=== PATIENT | female | born 1990 | race Two or more races ===

== ENCOUNTER 2018-07-25 01:41 | Emergency (ER) | payer MEDICAID, OTHER ==
[~2018-07-25] VITALS: Ht 154.9 cm; Wt 70.3 kg
[~2018-07-25 01:41] MED LIST: KEP500T PO
[2018-07-25 01:46] VITALS: BP 123/87
[2018-07-25 03:04] LABS: URINE AMPHETAMINE SCREEN NEGATIVE (Neg); URINE BARBITUATE SCREEN NEGATIVE (Neg); URINE BENZODIAZEPINES SCREEN NEGATIVE (Neg); URINE CANNABINOID SCREEN NEGATIVE (Neg); URINE COCAINE SCREEN NEGATIVE (Neg); URINE METHADONE SCREEN NEGATIVE (Neg); URINE OPIATE SCREEN NEGATIVE (Neg); URINE PHENCYCLIDINE SCREEN NEGATIVE (Neg)
[2018-07-25 03:07] LABS: CLARITY,URINE CLEAR (Clear); COLOR,URINE YELLOW (Yellow); GLUCOSE, URINE NEGATIVE (Neg); KETONES,URINE NEGATIVE (Neg); LEUKOCYTE ESTERASE ,URINE NEGATIVE (Neg); NITRITES, URINE NEGATIVE (Neg); OCCULT BLOOD,URINE NEGATIVE (Neg); PROTEIN,URINE NEGATIVE (Neg); UROBILINOGEN,URINE 0.2 E.U/dL (0.2-1.0)
[2018-07-25 03:08] LABS: UA COLLECTION TYPE CLN CATCH MIDSTREAM
[2018-07-25 03:14] LABS: URINE HCG NEGATIVE (NEG)
[2018-07-25] MEDS ORDERED: morphine 4 MG/ML inj SYRINge IM ONE (03:45)
[2018-07-25] MEDS ORDERED: CefTRIAXone 250MG inj IM ONE (05:15)
[2018-07-25] MEDS ORDERED: DOXYCYCLINE 100MG CAPSULE PO ONE (05:20)
[2018-07-25] MEDS ORDERED: CefTRIAXone 250MG IM Kit w/LIDOcaine IM ONE (05:25)
[2018-07-25] MEDS ORDERED: HYDROmorphone 1 mg/ml syringe IM ONE (05:25)
[2018-07-25] MEDS ORDERED: DOXY100C43 PO (06:00)
[2018-07-25] MEDS ORDERED: HYDR-3965 PO (06:00)
== END 2018-07-25 06:33 | disposition home or self-care (01) ==
LOC: ER 01:42
DX: N73.9 Female pelvic inflammatory disease, unspecified (principal); R30.0 Dysuria; J45.909 Unspecified asthma, uncomplicated; F17.200 Nicotine dependence, unspecified, uncomplicated; Z90.49 Acquired absence of other specified parts of digestive tract; Z88.8 Allergy status to other drugs, medicaments and biological substances; Z79.899 Other long term (current) drug therapy
CPT/HCPCS: 36415; 76830; 76856; 80305; 81003; 81025; 87210; 87491; 87591; 96372; 99284; J0696; J1170; J2270

== ENCOUNTER 2018-07-26 23:37 | Emergency (ER) | payer MEDICAID ==
[~2018-07-26] VITALS: Ht 157.5 cm; Wt 75.0 kg
[~2018-07-26 23:37] MED LIST changes: +DOXY100C43 PO; +HYDR-3965 PO
[2018-07-26 23:45] VITALS: BP 136/81
[2018-07-27] MEDS ORDERED: ondansetron 4mg rapidly disintigrating tab PO ONE (00:10)
[2018-07-27] MEDS ORDERED: morphine 4 MG/ML inj SYRINge IM ONE (00:10)
[2018-07-27] MEDS ORDERED: ONDA4TAB6 PO (00:18)
== END 2018-07-27 00:28 | disposition home or self-care (01) ==
LOC: ER 23:38
DX: N73.9 Female pelvic inflammatory disease, unspecified (principal); J45.909 Unspecified asthma, uncomplicated; Z88.8 Allergy status to other drugs, medicaments and biological substances; Z79.899 Other long term (current) drug therapy; Z90.49 Acquired absence of other specified parts of digestive tract
CPT/HCPCS: 96372; 99283; J2270

== ENCOUNTER 2018-08-15 00:57 | Emergency (ER) | payer MEDICARE, MEDICAID ==
[~2018-08-15] VITALS: Ht 154.9 cm; Wt 95.5 kg
[~2018-08-15 00:57] MED LIST changes: -DOXY100C43 PO; +ONDA4TAB6 PO
[2018-08-15] MEDS ORDERED: ondansetron/PF 4mg/2ml inj IV ONE ×2 (01:15→01:45)
[2018-08-15] MEDS ORDERED: normal saline 1000ml 1,000 ML IV ONE (01:15)
[2018-08-15] MEDS ORDERED: LORazepam 2 mg/ml vial IV ONE (01:20)
[2018-08-15] MEDS ORDERED: pantoprazole 40 MG vial IV ONE (01:20)
[2018-08-15 01:38] LABS: BASOPHILS # (AUTO) 0.1 X10'3 (0-0.2); BASOPHILS % (AUTO) 0.6 % (0-1); EOSINOPHILS # (AUTO) 0.2 X10'3 (0-0.9); EOSINOPHILS % (AUTO) 1.8 % (0-6); HEMOGLOBIN 13.6 g/dl (12.0-16.0); LYMPHOCYTES # (AUTO) 3.1 X10'3 (1.1-4.8); LYMPHOCYTES % (AUTO) 27.5 % (21-51); MEAN CORPUSCULAR HEMOGLOBIN 31.1 PG (27.0-31.0); MEAN CORPUSCULAR HGB CONC 33.9 g/dL (33.0-36.5); MEAN CORPUSCULAR VOLUME 91.7 FL (78-98); MEAN PLATELET VOLUME 8.6 FL (7.4-10.4); MONOCYTES # (AUTO) 0.9 X10'3 (0-0.9); NEUTROPHILS % (AUTO) 62.1 % (42-75); PLATELET COUNT 257 X10'3 (140-440); RED BLOOD COUNT 4.36 X10'6 (4.20-5.60); RED CELL DISTRIBUTION WIDTH 12.4 % (11.5-14.5); WHITE BLOOD COUNT 11.2 X10'3 (4.5-11.0)
[2018-08-15 01:54] LABS: ALANINE AMINOTRANSFERASE 54 U/L (12-78); ALBUMIN 3.4 G/DL (3.4-5.0); ALBUMIN/GLOBULIN RATIO 0.9 (1.1-1.5); ALKALINE PHOSPHATASE 123 IU/L (46-116); ANION GAP 11 (8-16); ASPARTATE AMINO TRANSFERASE 28 U/L (10-37); BILIRUBIN,TOTAL 0.1 MG/DL (0.1-1.0); BLOOD UREA NITROGEN 13 MG/DL (7-18); BUN/CREATININE RATIO 15.9 (6.6-38.0); CALCIUM 8.6 MG/DL (8.5-10.1); CHLORIDE 107 MMOL/L (99-107); CREATININE 0.82 MG/DL (0.40-0.90); GLUCOSE 82 MG/DL (70-104); POTASSIUM 3.4 MMOL/L (3.5-5.1); SODIUM 141 MMOL/L (135-145); TOTAL CARBON DIOXIDE 22.6 MMOL/L (24-32); TOTAL PROTEIN 7.2 G/DL (6.4-8.2); eGFR 84 ML/MIN
[2018-08-15 01:57] LABS: LIPASE 187 U/L (73-393); TROPONIN I < 0.04 NG/ML (0.0-0.05)
[2018-08-15 02:46] LABS: CLARITY,URINE SLIGHTLY CLOUDY (Clear); COLOR,URINE YELLOW (Yellow); GLUCOSE, URINE NEGATIVE (Neg); KETONES,URINE TRACE mg/dl (Neg); LEUKOCYTE ESTERASE ,URINE TRACE (Neg); NITRITES, URINE NEGATIVE (Neg); OCCULT BLOOD,URINE TRACE-INTACT (Neg); PROTEIN,URINE NEGATIVE (Neg); URINE HCG NEGATIVE (NEG); UROBILINOGEN,URINE 0.2 E.U/dL (0.2-1.0)
[2018-08-15 02:52] LABS: UA COLLECTION TYPE CLN CATCH MIDSTREAM
[2018-08-15 02:53] LABS: BACTERIA,URINE FEW /HPF (Neg); RBC,URINE 0-2 /HPF (0-2); SQUAMOUS EPITHELIAL CELL,UR MODERATE /LPF (FEW)
[2018-08-15] MEDS ORDERED: ONDA8TAB6 PO (03:38)
[2018-08-15 04:20] VITALS: BP 93/66
== END 2018-08-15 04:30 | disposition home or self-care (01) ==
LOC: ER 00:57
DX: K52.9 Noninfective gastroenteritis and colitis, unspecified (principal); J45.909 Unspecified asthma, uncomplicated; Z90.49 Acquired absence of other specified parts of digestive tract; Z88.8 Allergy status to other drugs, medicaments and biological substances
CPT/HCPCS: 36415; 71045; 80053; 81001; 81025; 83690; 84484; 85025; 87088; 93005; 96361; 96374; 96375; 99284; C9113; J2060; J2405; J7030

== ENCOUNTER 2018-11-07 12:51 | Emergency (ER) | payer MEDICARE, MEDICAID ==
[~2018-11-07] VITALS: Ht 154.9 cm; Wt 75.0 kg
[~2018-11-07 12:51] MED LIST changes: -HYDR-3965 PO; +ONDA8TAB6 PO
[2018-11-07 13:20] VITALS: BP 120/66
[2018-11-07] MEDS ORDERED: dexamethasone 4mg tablet PO ONE (14:50)
[2018-11-07] MEDS ORDERED: penicillin G benzathine 1.2 million unit/2ml syringe IM ONE (14:50)
== END 2018-11-07 15:33 | disposition home or self-care (01) ==
LOC: ER 12:51
DX: J02.0 Streptococcal pharyngitis (principal); J45.909 Unspecified asthma, uncomplicated; Z88.8 Allergy status to other drugs, medicaments and biological substances; Z79.899 Other long term (current) drug therapy; Z90.49 Acquired absence of other specified parts of digestive tract
CPT/HCPCS: 87880; 96372; 99283; J0561; J8540

== ENCOUNTER 2018-12-21 22:33 | Emergency (ER) | payer MEDICARE, MEDICAID ==
[~2018-12-21] VITALS: Ht 154.9 cm; Wt 71.0 kg
[2018-12-21 22:38] VITALS: BP 102/79
== END 2018-12-21 23:01 | disposition home or self-care (01) ==
LOC: ER 22:34
DX: L60.0 Ingrowing nail (principal); J45.909 Unspecified asthma, uncomplicated; Z90.49 Acquired absence of other specified parts of digestive tract; Z88.8 Allergy status to other drugs, medicaments and biological substances; Z79.899 Other long term (current) drug therapy
CPT/HCPCS: 99281

== ENCOUNTER 2019-06-21 02:57 | Emergency (ER) | payer MEDICARE, MEDICAID ==
[~2019-06-21] VITALS: Ht 154.9 cm; Wt 72.7 kg
[2019-06-21] MEDS ORDERED: levetiracetam inj 500 MG in normal saline 100ml IV soln 95 ML IV ONE (03:05)
[2019-06-21] MEDS ORDERED: LORazepam 2 mg/ml vial IV ONE (03:05)
[2019-06-21] MEDS ORDERED: normal saline 1000ML IV soln IVB ONE (03:05)
[2019-06-21] MEDS ORDERED: Levetiracetam-NS 500mg/100ml 100 ML IV ONE (03:25)
[2019-06-21 03:40] LABS: BASOPHILS # (AUTO) 0.1 X10'3 (0-0.2); BASOPHILS % (AUTO) 0.8 % (0-1); EOSINOPHILS # (AUTO) 0.1 X10'3 (0-0.9); EOSINOPHILS % (AUTO) 1.1 % (0-6); HEMATOCRIT 35.9 % (35.0-45.0); HEMOGLOBIN 12.5 g/dl (12.0-16.0); LYMPHOCYTES # (AUTO) 2.6 X10'3 (1.1-4.8); LYMPHOCYTES % (AUTO) 27.9 % (21-51); MEAN CORPUSCULAR HEMOGLOBIN 32.2 PG (27.0-31.0); MEAN CORPUSCULAR HGB CONC 34.8 g/dL (33.0-36.5); MEAN CORPUSCULAR VOLUME 92.8 FL (78-98); MEAN PLATELET VOLUME 8.6 FL (7.4-10.4); MONOCYTES # (AUTO) 0.7 X10'3 (0-0.9); MONOCYTES % (AUTO) 7.6 % (2-12); NEUTROPHILS # (AUTO) 5.8 X10'3 (1.8-7.7); NEUTROPHILS % (AUTO) 62.6 % (42-75); PLATELET COUNT 217 X10'3 (140-440); RED BLOOD COUNT 3.87 X10'6 (4.20-5.60); RED CELL DISTRIBUTION WIDTH 13.8 % (11.5-14.5); WHITE BLOOD COUNT 9.2 X10'3 (4.5-11.0)
[2019-06-21 03:43] LABS: URINE HCG NEGATIVE (NEG)
[2019-06-21 03:52] LABS: PARTIAL THROMBOPLASTIN TIME 23 SECONDS (22-32)
[2019-06-21 03:53] LABS: ALANINE AMINOTRANSFERASE 68 U/L (12-78); ALBUMIN 3.2 G/DL (3.4-5.0); ALBUMIN/GLOBULIN RATIO 0.9 (1.1-1.5); ALKALINE PHOSPHATASE 109 IU/L (46-116); ANION GAP 8 (8-16); ASPARTATE AMINO TRANSFERASE 24 U/L (10-37); BILIRUBIN,TOTAL 0.2 MG/DL (0.1-1.0); BLOOD UREA NITROGEN 11 MG/DL (7-18); BUN/CREATININE RATIO 12.6 (6.6-38.0); CALCIUM 7.8 MG/DL (8.5-10.1); CHLORIDE 107 MMOL/L (99-107); CREATININE 0.87 MG/DL (0.40-0.90); GLUCOSE 95 MG/DL (70-104); POTASSIUM 3.7 MMOL/L (3.5-5.1); SODIUM 138 MMOL/L (135-145); TOTAL CARBON DIOXIDE 23.5 MMOL/L (24-32); TOTAL PROTEIN 6.8 G/DL (6.4-8.2); eGFR 78 ML/MIN
[2019-06-21 03:54] LABS: ETHANOL < 0.010 GM/DL (0.0-0.010)
[2019-06-21 03:56] LABS: URINE AMPHETAMINE SCREEN NEGATIVE (Neg); URINE BARBITUATE SCREEN NEGATIVE (Neg); URINE BENZODIAZEPINES SCREEN NEGATIVE (Neg); URINE CANNABINOID SCREEN NEGATIVE (Neg); URINE COCAINE SCREEN NEGATIVE (Neg); URINE METHADONE SCREEN NEGATIVE (Neg); URINE OPIATE SCREEN NEGATIVE (Neg); URINE PHENCYCLIDINE SCREEN NEGATIVE (Neg)
[2019-06-21 03:58] LABS: CLARITY,URINE CLOUDY (Clear); COLOR,URINE YELLOW (Yellow); GLUCOSE, URINE NEGATIVE (Neg); KETONES,URINE NEGATIVE (Neg); LEUKOCYTE ESTERASE ,URINE LARGE (Neg); NITRITES, URINE NEGATIVE (Neg); OCCULT BLOOD,URINE TRACE-INTACT (Neg); PROTEIN,URINE NEGATIVE (Neg)
[2019-06-21 04:20] LABS: UA COLLECTION TYPE CLN CATCH MIDSTREAM
[2019-06-21 04:23] LABS: BACTERIA,URINE FEW /HPF (Neg); RBC,URINE NONE SEEN /HPF (0-2); SQUAMOUS EPITHELIAL CELL,UR FEW /LPF (FEW)
[2019-06-21 04:51] VITALS: BP 103/64
== END 2019-06-21 04:42 | disposition home or self-care (01) ==
LOC: ER 02:58
DX: G40.909 Epilepsy, unspecified, not intractable, without status epilepticus (principal); J45.909 Unspecified asthma, uncomplicated; F17.200 Nicotine dependence, unspecified, uncomplicated; Z90.49 Acquired absence of other specified parts of digestive tract; Z88.6 Allergy status to analgesic agent
CPT/HCPCS: 36415; 80053; 80305; 80320; 81001; 81025; 85025; 85610; 85730; 87088; 93005; 96374; 96375; 99284; J1953; J2060; J7030; 96365

== ENCOUNTER → 2019-08-31 | Emergency (ER) | payer MEDICARE, MEDICAID ==
[~2019-08-31] VITALS: Ht 154.9 cm; Wt 68.2 kg
[~2019-08-31] MED LIST changes: +LORA-269 PO; +OXCA600T37 PO; +ibuprofen tablet 400 MG TABLET PO ONE; +levetiracetam 250mg tablet PO SCH; +normal saline 1000ml 1,000 ML IV ONE; +ondansetron/PF 4mg/2ml inj IV ONE; +oxcarbazepine 150mg tablet PO SCH
[2019-08-31 03:07] LABS: URINE HCG NEGATIVE (NEG)
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
[2019-08-31 03:09] LABS: BASOPHILS % (AUTO) 0.3 % (0-1); EOSINOPHILS % (AUTO) 0.2 % (0-6); HEMATOCRIT 38.7 % (35.0-45.0); LYMPHOCYTES # (AUTO) 3.1 X10'3 (1.1-4.8); LYMPHOCYTES % (AUTO) 27.2 % (21-51); MEAN CORPUSCULAR HGB CONC 33.6 g/dL (33.0-36.5); MEAN CORPUSCULAR VOLUME 95.4 FL (78-98); MEAN PLATELET VOLUME 8.3 FL (7.4-10.4); MONOCYTES # (AUTO) 0.7 X10'3 (0-0.9); MONOCYTES % (AUTO) 6.1 % (2-12); NEUTROPHILS # (AUTO) 7.7 X10'3 (1.8-7.7); NEUTROPHILS % (AUTO) 66.2 % (42-75); PLATELET COUNT 234 X10'3 (140-440); RED BLOOD COUNT 4.05 X10'6 (4.20-5.60); RED CELL DISTRIBUTION WIDTH 12.7 % (11.5-14.5); WHITE BLOOD COUNT 11.6 X10'3 (4.5-11.0)
[2019-08-31 03:10] LABS: CLARITY,URINE CLEAR (Clear); COLOR,URINE STRAW (Yellow); GLUCOSE, URINE NEGATIVE (Neg); KETONES,URINE NEGATIVE (Neg); LEUKOCYTE ESTERASE ,URINE TRACE (Neg); NITRITES, URINE NEGATIVE (Neg); OCCULT BLOOD,URINE SMALL (Neg); PROTEIN,URINE NEGATIVE (Neg); UROBILINOGEN,URINE 0.2 E.U/dL (0.2-1.0)
[2019-08-31 03:15] LABS: UA COLLECTION TYPE OTHER
[2019-08-31 03:17] LABS: BACTERIA,URINE 1+ /HPF (Neg); RBC,URINE NONE SEEN /HPF (0-2); SQUAMOUS EPITHELIAL CELL,UR FEW /LPF (FEW); WBC,URINE NONE SEEN /HPF (0-4)
[2019-08-31 03:19] LABS: PARTIAL THROMBOPLASTIN TIME 25 SECONDS (22-32)
[2019-08-31 03:20] LABS: ALANINE AMINOTRANSFERASE 21 U/L (12-78); ALBUMIN 3.2 G/DL (3.4-5.0); ALBUMIN/GLOBULIN RATIO 0.9 (1.1-1.5); ALKALINE PHOSPHATASE 102 IU/L (46-116); ANION GAP 12 (8-16); ASPARTATE AMINO TRANSFERASE 16 U/L (10-37); BILIRUBIN,TOTAL 0.1 MG/DL (0.1-1.0); BLOOD UREA NITROGEN 12 MG/DL (7-18); BUN/CREATININE RATIO 13.8 (6.6-38.0); CALCIUM 7.6 MG/DL (8.5-10.1); CHLORIDE 112 MMOL/L (99-107); CREATININE 0.87 MG/DL (0.40-0.90); GLUCOSE 95 MG/DL (70-104); POTASSIUM 3.6 MMOL/L (3.5-5.1); SODIUM 145 MMOL/L (135-145); TOTAL CARBON DIOXIDE 20.7 MMOL/L (24-32); TOTAL PROTEIN 6.9 G/DL (6.4-8.2); eGFR 78 ML/MIN
[2019-08-31 03:21] LABS: URINE AMPHETAMINE SCREEN NEGATIVE (Neg); URINE BARBITUATE SCREEN NEGATIVE (Neg); URINE BENZODIAZEPINES SCREEN NEGATIVE (Neg); URINE CANNABINOID SCREEN NEGATIVE (Neg); URINE COCAINE SCREEN NEGATIVE (Neg); URINE METHADONE SCREEN NEGATIVE (Neg); URINE OPIATE SCREEN NEGATIVE (Neg); URINE PHENCYCLIDINE SCREEN NEGATIVE (Neg)
--- NOTE | 2019-08-31 03:27 | NUR ---
PT MOTHER ISABELA CAME TO VISIT PT AND GET AN UPDATE. PT GAVE VERBAL PERMISSION TO TALK WITH MOTHER AND GIVE ANY INFORMATION MOTHER WANTS. MOTHER GIVEN UPDATE IN AMBULANCE BAY NO VISITORS ALLOWED. INFORMED PT WILL BE STAYING FOR MONITORING AND HAS CURRENT [address] AND WILL SEE [facility] IN THE MORNING FOR EVALUATION. MOTHER AGREEABLE TO PLAN AND SAID WILL CALL IN THE MORNING FOR UPDATE. MOTHER AND SISTERS INFORMATION IN PT DATA
[2019-08-31 03:30] LABS: ETHANOL 0.309 GM/DL (0.0-0.010)
[2019-08-31 03:31] LABS: ACETAMINOPHEN < 2.0 UG/ML (10-30)
--- NOTE | 2019-08-31 03:44 | NUR ---
PT SISTER DANY #: [phone]
--- NOTE | 2019-08-31 04:48 | NUR ---
PER EDHI JERRI, PT IS MEDICALLY CLEARED TO GO TO OVERFLOW. EDHI JERRI MADE AWARE OF PT BLOOD PRESSURE 97/49. NO NEW ORDERS AT THIS TIME. WILL ESCORT PT TO OVERFLOW.
--- NOTE | 2019-08-31 05:09 | NUR ---
CALLED REPORT TO KIMBERLY TIWARI. SAIDA ORTEGA ESCORTED PT TO OVERFLOW BED 10 WITHOUT ISSUE. PT AMBULATED STEADILY
--- NOTE | 2019-08-31 05:11 | NUR ---
Packet to [facility]
--- NOTE | 2019-08-31 06:22 | NUR ---
Patient is sleeping on her left side. Respirations are even and unlabored.
--- NOTE | 2019-08-31 09:18 | NUR ---
Patient sleeping on right side. Mother called x 2 to check on daughter. No S/S of distress.
--- NOTE | 2019-08-31 10:12 | NUR ---
Breaking primary RN. pt is siting up in bed, talking on the phone, no agitaion observed
--- NOTE | 2019-08-31 11:35 | NUR ---
Patient sleeping on right side. [facility] will evaluate client when her REBEKAH is lower.
--- NOTE | 2019-08-31 12:19 | NUR ---
breaking primary RN, pt is laying on her left side, regular breathing observed, appears to be asleep, will continue to monitor
--- NOTE | 2019-08-31 13:33 | NUR ---
Patient awake requesting Motrin for generalized body aches and a headache. Pt. denies SI. Reports that she does not remember anything about last night, does not know how she ended up here. Pt. states that she just wants to go home. Awaiting [facility] evaluation. Motrin given.
--- NOTE | 2019-08-31 15:14 | NUR ---
breaking primary RN, pt is in bed talking on the phone, calm, no s/s of agitation observed, awaiting [facility] eval
[2019-08-31 16:13] LABS: URINE AMPHETAMINE SCREEN NEGATIVE (Neg); URINE BARBITUATE SCREEN NEGATIVE (Neg); URINE BENZODIAZEPINES SCREEN NEGATIVE (Neg); URINE CANNABINOID SCREEN NEGATIVE (Neg); URINE COCAINE SCREEN NEGATIVE (Neg); URINE METHADONE SCREEN NEGATIVE (Neg); URINE OPIATE SCREEN NEGATIVE (Neg); URINE PHENCYCLIDINE SCREEN NEGATIVE (Neg)
[2019-08-31 17:53] VITALS: BP 121/72
--- NOTE | 2019-09-05 11:08 | NUR ---
PT CALLED TO NOTIFIY THAT LAB WORK WAS POSITIVE FOR UTI AND ABX WERE NEEDED. NO ANSWER, MAILBOX FULL, UNABLE TO LEAVE MSG. Addendum: 09/05/19 at 1234 by JENNIFER PT CALLED AFTER SEEING THAT SHE HAD A MISS CALL FROM [facility] ER. PT INFORMED THAT HER LABS FROM 08/31/19 HAD A POSITIVE URINE CULTURE FOR UTI AND THAT ABX ARE NEEDED. PT REQUESTED THAT RX BE CALLED INTO [facility] ON [address] . RX CALLED TO [facility] ON [address]: CIPRO 500MG 1 TAB PO BID X 7 DAYS #14, NO REFILLS
== END ==
LOC: ER 02:24
DX: F10.129 Alcohol abuse with intoxication, unspecified (principal); R45.851 Suicidal ideations; R11.10 Vomiting, unspecified; R41.82 Altered mental status, unspecified; J45.909 Unspecified asthma, uncomplicated; F14.90 Cocaine use, unspecified, uncomplicated; F19.90 Other psychoactive substance use, unspecified, uncomplicated; Z90.49 Acquired absence of other specified parts of digestive tract; Z86.69 Personal history of other diseases of the nervous system and sense organs; Z88.8 Allergy status to other drugs, medicaments and biological substances; Z79.899 Other long term (current) drug therapy; Y90.0 Blood alcohol level of less than 20 mg/100 ml
CPT/HCPCS: 36415; 71045; 80053; 80305; 80320; 80329; 81001; 81025; 84443; 85025; 85610; 85730; 87077; 87088; 87186; 93005; 96374; 99285; J2405; J7030

== ENCOUNTER 2019-10-25 01:38 | Emergency (ER) | payer MEDICARE, MEDICAID ==
[~2019-10-25] VITALS: Ht 154.9 cm; Wt 75.0 kg
[~2019-10-25 01:38] MED LIST changes: -ONDA4TAB6 PO; -ONDA8TAB6 PO; -ibuprofen tablet 400 MG TABLET PO ONE; -levetiracetam 250mg tablet PO SCH; -normal saline 1000ml 1,000 ML IV ONE; -ondansetron/PF 4mg/2ml inj IV ONE; -oxcarbazepine 150mg tablet PO SCH
[2019-10-25 02:37] VITALS: BP 136/72
== END 2019-10-25 02:30 | disposition home or self-care (01) ==
LOC: ER 01:39
DX: F10.129 Alcohol abuse with intoxication, unspecified (principal); R56.9 Unspecified convulsions; J45.909 Unspecified asthma, uncomplicated; Z90.49 Acquired absence of other specified parts of digestive tract; Z88.8 Allergy status to other drugs, medicaments and biological substances; Z79.899 Other long term (current) drug therapy; Y90.0 Blood alcohol level of less than 20 mg/100 ml
CPT/HCPCS: 93005; 99284

== ENCOUNTER 2020-01-30 20:02 | Emergency (ER) | payer MEDICARE, MEDICAID ==
[~2020-01-30] VITALS: Ht 154.9 cm; Wt 72.3 kg
[2020-01-30] MEDS ORDERED: HYDR-3965 PO (20:55)
[2020-01-30] MEDS ORDERED: HYDROcodone/acetaminophen 5mg/325mg tablet PO ONE (20:55)
[2020-01-30 21:20] VITALS: BP 108/82
== END 2020-01-30 21:23 | disposition home or self-care (01) ==
LOC: ER 20:02
DX: S93.402A Sprain of unspecified ligament of left ankle, initial encounter (principal); J45.909 Unspecified asthma, uncomplicated; Z86.69 Personal history of other diseases of the nervous system and sense organs; Z90.49 Acquired absence of other specified parts of digestive tract; Z72.89 Other problems related to lifestyle; Z88.8 Allergy status to other drugs, medicaments and biological substances; Z79.899 Other long term (current) drug therapy; X50.1XXA Overexertion from prolonged static or awkward postures, initial encounter; Y93.89 Activity, other specified; Y92.89 Other specified places as the place of occurrence of the external cause; Y99.8 Other external cause status
CPT/HCPCS: 73610; 73630; 99284

== ENCOUNTER 2020-03-25 04:26 | Emergency (ER) | payer MEDICARE, MEDICAID ==
[~2020-03-25] VITALS: Ht 154.9 cm; Wt 70.9 kg
[2020-03-25 04:33] VITALS: BP 120/81
[2020-03-25] MEDS ORDERED: normal saline 1000ML IV soln IVB ONE (04:40)
[2020-03-25] MEDS ORDERED: iohexol 300mg/ml 100ml inj. ONE (04:43)
[2020-03-25 05:12] LABS: CLARITY,URINE CLEAR (Clear); COLOR,URINE YELLOW (Yellow); GLUCOSE, URINE NEGATIVE (Neg); KETONES,URINE NEGATIVE (Neg); LEUKOCYTE ESTERASE ,URINE TRACE (Neg); NITRITES, URINE NEGATIVE (Neg); OCCULT BLOOD,URINE MODERATE (Neg); PROTEIN,URINE 30 mg/dl (Neg); URINE HCG NEGATIVE (NEG); UROBILINOGEN,URINE 0.2 E.U/dL (0.2-1.0)
[2020-03-25 05:16] LABS: BASOPHILS % (AUTO) 0.5 % (0-1); EOSINOPHILS % (AUTO) 0.4 % (0-6); HEMATOCRIT 40.7 % (35.0-45.0); HEMOGLOBIN 14.1 g/dl (12.0-16.0); LYMPHOCYTES # (AUTO) 1.6 X10'3 (1.1-4.8); LYMPHOCYTES % (AUTO) 20.4 % (21-51); MEAN CORPUSCULAR HEMOGLOBIN 33.1 PG (27.0-31.0); MEAN CORPUSCULAR HGB CONC 34.6 g/dL (33.0-36.5); MEAN CORPUSCULAR VOLUME 95.6 FL (78-98); MEAN PLATELET VOLUME 8.6 FL (7.4-10.4); MONOCYTES # (AUTO) 0.5 X10'3 (0-0.9); MONOCYTES % (AUTO) 6.1 % (2-12); NEUTROPHILS # (AUTO) 5.7 X10'3 (1.8-7.7); NEUTROPHILS % (AUTO) 72.6 % (42-75); PLATELET COUNT 279 X10'3 (140-440); RED BLOOD COUNT 4.26 X10'6 (4.20-5.60); RED CELL DISTRIBUTION WIDTH 13.2 % (11.5-14.5); WHITE BLOOD COUNT 7.8 X10'3 (4.5-11.0)
[2020-03-25 05:22] LABS: ALANINE AMINOTRANSFERASE 34 U/L (12-78); ALKALINE PHOSPHATASE 92 IU/L (46-116); ANION GAP 13 (8-16); ASPARTATE AMINO TRANSFERASE 34 U/L (10-37); BILIRUBIN,TOTAL 0.2 MG/DL (0.1-1.0); BLOOD UREA NITROGEN 9 MG/DL (7-18); BUN/CREATININE RATIO 10.3 (6.6-38.0); CALCIUM 8.6 MG/DL (8.5-10.1); CHLORIDE 103 MMOL/L (99-107); CREATININE 0.87 MG/DL (0.40-0.90); GLUCOSE 115 MG/DL (70-104); POTASSIUM 3.2 MMOL/L (3.5-5.1); SODIUM 140 MMOL/L (135-145); TOTAL CARBON DIOXIDE 24.4 MMOL/L (24-32); TOTAL PROTEIN 8.2 G/DL (6.4-8.2); eGFR 77 ML/MIN
[2020-03-25 05:26] LABS: URINE AMPHETAMINE SCREEN NEGATIVE (Neg); URINE BARBITUATE SCREEN NEGATIVE (Neg); URINE BENZODIAZEPINES SCREEN POSITIVE (Neg); URINE CANNABINOID SCREEN NEGATIVE (Neg); URINE COCAINE SCREEN POSITIVE (Neg); URINE METHADONE SCREEN NEGATIVE (Neg); URINE OPIATE SCREEN NEGATIVE (Neg); URINE PHENCYCLIDINE SCREEN NEGATIVE (Neg)
[2020-03-25] MEDS ORDERED: potassium Cl 20 mEq SR tablet PO STA (05:26)
[2020-03-25 05:30] LABS: ETHANOL 0.143 GM/DL (0.0-0.010)
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
[2020-03-25 05:40] LABS: UA COLLECTION TYPE CLN CATCH MIDSTREAM
[2020-03-25] MEDS ORDERED: ondansetron/PF 4mg/2ml inj IV ONE (05:45)
[2020-03-25 05:54] LABS: MUCUS STRANDS MANY /LPF (Neg); SQUAMOUS EPITHELIAL CELL,UR MODERATE /LPF (FEW)
--- NOTE | 2020-03-25 05:55 | NUR ---
PATIENT'S MOTHER IN LOBBY VERBAL PERMISSION GIVEN BY PATIENT TO SPEAK WITH HER ABOUT PATIENT'S CONDITION. MOTHER (GILLIAN) [phone]
[2020-03-25 05:58] LABS: BACTERIA,URINE 1+ /HPF (Neg); HYALINE CASTS 0-3 /LPF (NEGATIVE)
[2020-03-25 05:59] LABS: RBC,URINE 0-2 /HPF (0-2); WBC,URINE 0-4 /HPF (0-4)
--- NOTE | 2020-03-25 08:54 | NUR ---
pt walk over from room 7 to overflow 21. pt is talking on the phone with her mom
--- NOTE | 2020-03-25 09:26 | NUR ---
pt is asking when she can go home. pt is talking on the phone with her mom
[2020-03-25] MEDS ORDERED: acetaminophen 325mg tablet PO PRN (10:20)
--- NOTE | 2020-03-25 11:04 | NUR ---
pt is on the phone with her mother. pt is changing her story to her mom. pt is not happy that is still on a 5150
--- NOTE | 2020-03-25 12:00 | NUR ---
pt is resting. no concerns at this time
--- NOTE | 2020-03-25 13:00 | NUR ---
pt is resting. no concerns at this time
--- NOTE | 2020-03-25 14:13 | NUR ---
pt is resting. no concerns at this time
--- NOTE | 2020-03-25 15:12 | NUR ---
pt accepted to [facility] at 1448 by
[2020-03-25] MEDS ORDERED: levetiracetam 250mg tablet PO SCH (20:00)
[2020-03-26] MEDS ORDERED: OXCARBAZEPINE 600 MG PO SCH (08:00)
== END 2020-03-25 16:00 ==
LOC: ER 04:27
DX: S80.212A Abrasion, left knee, initial encounter (principal); S80.211A Abrasion, right knee, initial encounter; R51.9 Headache, unspecified; R45.851 Suicidal ideations; F10.129 Alcohol abuse with intoxication, unspecified; J45.909 Unspecified asthma, uncomplicated; F31.9 Bipolar disorder, unspecified; F14.90 Cocaine use, unspecified, uncomplicated; Z86.69 Personal history of other diseases of the nervous system and sense organs; Z90.49 Acquired absence of other specified parts of digestive tract; Z72.89 Other problems related to lifestyle; Z88.8 Allergy status to other drugs, medicaments and biological substances; Z79.899 Other long term (current) drug therapy; X58.XXXA Exposure to other specified factors, initial encounter; Y93.89 Activity, other specified; Y92.89 Other specified places as the place of occurrence of the external cause; Y99.8 Other external cause status; Y90.0 Blood alcohol level of less than 20 mg/100 ml
CPT/HCPCS: 36415; 70450; 70486; 71260; 72125; 74177; 80053; 80305; 80320; 81001; 81025; 83735; 84443; 85025; 96361; 96374; 99285; J2405; J7030; Q9967

== ENCOUNTER 2020-06-09 23:08 | Emergency (ER) | payer MEDICARE, MEDICAID ==
[~2020-06-09] VITALS: Ht 154.9 cm; Wt 75.9 kg
[~2020-06-09 23:08] MED LIST changes: -LORA-269 PO
[2020-06-09 23:20] VITALS: BP 103/67
[2020-06-10] MEDS ORDERED: oxcarbazepine 150mg tablet PO SCH (00:25)
[2020-06-10] MEDS ORDERED: levetiracetamNACL 1500mg/100mL 100 ML IV SCH (00:25)
[2020-06-10] MEDS ORDERED: oxcarbazepine 150mg tablet PO ONE (00:25)
== END 2020-06-10 01:36 | disposition home or self-care (01) ==
LOC: ER 23:09
DX: G40.909 Epilepsy, unspecified, not intractable, without status epilepticus (principal); R51.9 Headache, unspecified; F10.10 Alcohol abuse, uncomplicated; J45.909 Unspecified asthma, uncomplicated; F31.9 Bipolar disorder, unspecified; Z90.49 Acquired absence of other specified parts of digestive tract; Z88.8 Allergy status to other drugs, medicaments and biological substances; Z79.899 Other long term (current) drug therapy; Y90.9 Presence of alcohol in blood, level not specified
CPT/HCPCS: 82948; 96365; 99284; J1953

== ENCOUNTER 2020-10-24 09:18 | Emergency (ER) | payer MEDICARE, MEDICAID ==
[~2020-10-24] VITALS: Ht 154.9 cm; Wt 79.5 kg
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
[2020-10-24 10:32] LABS: BASOPHILS % (AUTO) 0.1 % (0-1); EOSINOPHILS # (AUTO) 0.1 X10'3 (0-0.9); EOSINOPHILS % (AUTO) 0.4 % (0-6); HEMATOCRIT 45.1 % (35.0-45.0); HEMOGLOBIN 15.3 g/dl (12.0-16.0); LYMPHOCYTES # (AUTO) 0.4 X10'3 (1.1-4.8); LYMPHOCYTES % (AUTO) 2.8 % (21-51); MEAN CORPUSCULAR HEMOGLOBIN 31.6 PG (27.0-31.0); MEAN CORPUSCULAR HGB CONC 33.9 g/dL (33.0-36.5); MEAN CORPUSCULAR VOLUME 93.2 FL (78-98); MEAN PLATELET VOLUME 8.4 FL (7.4-10.4); MONOCYTES # (AUTO) 0.5 X10'3 (0-0.9); MONOCYTES % (AUTO) 3.6 % (2-12); NEUTROPHILS # (AUTO) 14.4 X10'3 (1.8-7.7); NEUTROPHILS % (AUTO) 93.1 % (42-75); PLATELET COUNT 314 X10'3 (140-440); RED BLOOD COUNT 4.84 X10'6 (4.20-5.60); RED CELL DISTRIBUTION WIDTH 12.8 % (11.5-14.5); WHITE BLOOD COUNT 15.4 X10'3 (4.5-11.0)
[2020-10-24] MEDS ORDERED: ondansetron/PF 4mg/2ml inj IV ONE ×2 (10:40→12:45)
[2020-10-24] MEDS ORDERED: morphine 4 MG/ML inj SYRINge IV ONE ×2 (10:40→12:45)
[2020-10-24] MEDS ORDERED: normal saline 1000ml 1,000 ML IV ONE ×2 (10:40→12:45)
[2020-10-24 10:47] LABS: ALANINE AMINOTRANSFERASE 58 U/L (12-78); ALBUMIN/GLOBULIN RATIO 0.9 (1.1-1.5); AMYLASE 89 U/L (25-115); ANION GAP 11 (8-16); ASPARTATE AMINO TRANSFERASE 19 U/L (10-37); BILIRUBIN,TOTAL 0.7 MG/DL (0.1-1.0); BLOOD UREA NITROGEN 14 MG/DL (7-18); BUN/CREATININE RATIO 14.9 (6.6-38.0); CALCIUM 8.6 MG/DL (8.5-10.1); CHLORIDE 105 MMOL/L (99-107); CREATININE 0.94 MG/DL (0.40-0.90); GLUCOSE 144 MG/DL (70-104); LIPASE 132 U/L (73-393); POTASSIUM 4.2 MMOL/L (3.5-5.1); SODIUM 138 MMOL/L (135-145); TOTAL CARBON DIOXIDE 22.4 MMOL/L (24-32); TOTAL PROTEIN 8.6 G/DL (6.4-8.2); eGFR 70 ML/MIN
[2020-10-24 11:17] LABS: ALKALINE PHOSPHATASE 112 IU/L (46-116)
--- NOTE | 2020-10-24 11:44 | NUR ---
patient up to restroom with no assist.
[2020-10-24 12:19] LABS: CLARITY,URINE CLOUDY (Clear); COLOR,URINE YELLOW (Yellow); GLUCOSE, URINE NEGATIVE (Neg); KETONES,URINE TRACE mg/dl (Neg); LEUKOCYTE ESTERASE ,URINE SMALL (Neg); NITRITES, URINE NEGATIVE (Neg); OCCULT BLOOD,URINE TRACE-INTACT (Neg); PH,URINE 5.5 (4.8-8.0); PROTEIN,URINE NEGATIVE (Neg); UROBILINOGEN,URINE 0.2 E.U/dL (0.2-1.0)
[2020-10-24 12:20] LABS: UA COLLECTION TYPE CLN CATCH MIDSTREAM; URINE HCG NEGATIVE (NEG)
[2020-10-24 12:26] LABS: BACTERIA,URINE 1+ /HPF (Neg); HYALINE CASTS 0-3 /LPF (NEGATIVE); MUCUS STRANDS MODERATE /LPF (Neg); RBC,URINE 0-2 /HPF (0-2); SQUAMOUS EPITHELIAL CELL,UR MANY /LPF (FEW); WBC,URINE 0-4 /HPF (0-4)
[2020-10-24 13:57] VITALS: BP 102/61
[2020-10-24] MEDS ORDERED: ONDA4TAB6 PO (14:08)
== END 2020-10-24 14:34 | disposition home or self-care (01) ==
LOC: ER 09:19
DX: R10.84 Generalized abdominal pain (principal); R11.2 Nausea with vomiting, unspecified; J45.909 Unspecified asthma, uncomplicated; F31.9 Bipolar disorder, unspecified; Z86.69 Personal history of other diseases of the nervous system and sense organs; Z90.49 Acquired absence of other specified parts of digestive tract; Z72.89 Other problems related to lifestyle; Z88.8 Allergy status to other drugs, medicaments and biological substances; Z79.899 Other long term (current) drug therapy
CPT/HCPCS: 36415; 74176; 80053; 81001; 81025; 82150; 83690; 85025; 96361; 96374; 96375; 96376; 99284; J2270; J2405; J7030

== ENCOUNTER 2021-06-30 12:15 | Emergency (ER) | payer MEDICARE, MEDICAID ==
[~2021-06-30] VITALS: Ht 160 cm; Wt 80.0 kg
[~2021-06-30 12:15] MED LIST changes: +ONDA4TAB6 PO
[2021-06-30 12:44] VITALS: BP 116/64
== END 2021-06-30 12:48 | disposition left against medical advice (07) ==
LOC: ER 12:16
DX: R50.9 Fever, unspecified (principal); Z53.21 Procedure and treatment not carried out due to patient leaving prior to being seen by health care provider

== ENCOUNTER 2021-09-30 01:20 | Emergency (ER) | payer MEDICARE, MEDICAID ==
[~2021-09-30] VITALS: Ht 154.9 cm; Wt 76.4 kg
[2021-09-30 02:42] LABS: URINE HCG NEGATIVE (NEG)
[2021-09-30] MEDS ORDERED: ondansetron 4mg rapidly disintigrating tab PO ONE (02:55)
[2021-09-30 03:02] LABS: CLARITY,URINE SLIGHTLY CLOUDY (Clear); COLOR,URINE YELLOW (Yellow); GLUCOSE, URINE NEGATIVE (Neg); KETONES,URINE 40 mg/dl (Neg); LEUKOCYTE ESTERASE ,URINE TRACE (Neg); NITRITES, URINE NEGATIVE (Neg); OCCULT BLOOD,URINE NEGATIVE (Neg); PROTEIN,URINE NEGATIVE (Neg)
[2021-09-30 03:06] LABS: UA COLLECTION TYPE CLN CATCH MIDSTREAM
[2021-09-30 03:09] LABS: BACTERIA,URINE 5+ /HPF (Neg); MUCUS STRANDS FEW /LPF (Neg); RBC,URINE NONE SEEN /HPF (0-2); SQUAMOUS EPITHELIAL CELL,UR MANY /LPF (FEW); WBC,URINE 0-4 /HPF (0-4)
[2021-09-30 03:33] LABS: MEAN CORPUSCULAR HEMOGLOBIN 31.9 PG (27.0-31.0); MEAN CORPUSCULAR HGB CONC 34.7 g/dL (33.0-36.5); WHITE BLOOD COUNT 5.5 X10'3 (4.5-11.0)
[2021-09-30 03:36] LABS: BASOPHILS % (AUTO) 0.2 % (0-1); EOSINOPHILS % (AUTO) 0.4 % (0-6); HEMOGLOBIN 14.6 g/dl (12.0-16.0); LYMPHOCYTES # (AUTO) 1.4 X10'3 (1.1-4.8); LYMPHOCYTES % (AUTO) 24.4 % (21-51); MEAN PLATELET VOLUME 8.7 FL (7.4-10.4); MONOCYTES # (AUTO) 0.6 X10'3 (0-0.9); MONOCYTES % (AUTO) 10.5 % (2-12); NEUTROPHILS # (AUTO) 3.6 X10'3 (1.8-7.7); NEUTROPHILS % (AUTO) 64.5 % (42-75); PLATELET COUNT 237 X10'3 (140-440); RED BLOOD COUNT 4.57 X10'6 (4.20-5.60); RED CELL DISTRIBUTION WIDTH 12.8 % (11.5-14.5)
[2021-09-30 03:41] LABS: ALANINE AMINOTRANSFERASE 23 U/L (12-78); ALBUMIN 3.6 G/DL (3.4-5.0); ALBUMIN/GLOBULIN RATIO 0.8 (1.1-1.5); ALKALINE PHOSPHATASE 95 IU/L (46-116); ASPARTATE AMINO TRANSFERASE 16 U/L (10-37); BILIRUBIN,TOTAL 0.5 MG/DL (0.1-1.0); BLOOD UREA NITROGEN 6 MG/DL (7-18); BUN/CREATININE RATIO 6.7 (6.6-38.0); CALCIUM 8.7 MG/DL (8.5-10.1); GLUCOSE 109 MG/DL (70-104); LIPASE 69 U/L (73-393); TOTAL CARBON DIOXIDE 22.5 MMOL/L (24-32); TOTAL PROTEIN 8.1 G/DL (6.4-8.2); eGFR 74 ML/MIN
[2021-09-30 04:01] LABS: ANION GAP 13 (8-16); CHLORIDE 98 MMOL/L (99-107); POTASSIUM 3.2 MMOL/L (3.5-5.1); SODIUM 133 MMOL/L (135-145)
[2021-09-30] MEDS ORDERED: normal saline 1000ml 1,000 ML IV ONE (04:55)
[2021-09-30] MEDS ORDERED: morphine 4 MG/ML inj SYRINge IV ONE ×2 (05:15→06:20)
[2021-09-30] MEDS ORDERED: ondansetron/PF 4mg/2ml inj IV ONE (05:15)
[2021-09-30] MEDS ORDERED: cephalexin 250mg capsule PO ONE (05:55)
[2021-09-30] MEDS ORDERED: metoclopramide 5 mg/ml inj IV ONE (06:20)
[2021-09-30] MEDS ORDERED: cefTRIAXone 1g/NS 100ml IVPB 100 ML IV ONE (06:45)
[2021-09-30] MEDS ORDERED: LEVETIRACETAM NS 500 MG/100 ML IV SCH (08:00)
[2021-09-30] MEDS ORDERED: CEPH-585 PO (09:20)
[2021-09-30 09:47] VITALS: BP 101/61
== END 2021-09-30 09:49 | disposition home or self-care (01) ==
LOC: ER 01:21
DX: N12 Tubulo-interstitial nephritis, not specified as acute or chronic (principal); R11.2 Nausea with vomiting, unspecified; J45.909 Unspecified asthma, uncomplicated; K21.9 Gastro-esophageal reflux disease without esophagitis; F31.9 Bipolar disorder, unspecified; Z88.8 Allergy status to other drugs, medicaments and biological substances; Z79.899 Other long term (current) drug therapy
CPT/HCPCS: 36415; 74176; 80053; 81001; 81025; 83690; 85025; 96361; 96365; 96368; 96375; 96376; 99285; J0696; J1953; J2270; J2405; J2765; J7030

== ENCOUNTER 2021-11-13 04:43 | Inpatient (IN) | payer MEDICARE, MEDICAID ==
[~2021-11-13] VITALS: Ht 154.9 cm; Wt 76.7 kg
[~2021-11-13 04:43] MED LIST changes: +CEPH-585 PO
[2021-11-13] MEDS ORDERED: LORA-269 PO (05:01)
[2021-11-13] MEDS ORDERED: TRAZ-256 PO (05:01)
[2021-11-13 05:02] LABS: BASOPHILS % (AUTO) 0.4 % (0-1); EOSINOPHILS # (AUTO) 0.1 X10'3 (0-0.9); EOSINOPHILS % (AUTO) 0.8 % (0-6); HEMATOCRIT 38.8 % (35.0-45.0); HEMOGLOBIN 13.2 g/dl (12.0-16.0); LYMPHOCYTES % (AUTO) 29.4 % (21-51); MEAN CORPUSCULAR HEMOGLOBIN 31.9 PG (27.0-31.0); MEAN CORPUSCULAR HGB CONC 34.2 g/dL (33.0-36.5); MEAN CORPUSCULAR VOLUME 93.4 FL (78-98); MONOCYTES # (AUTO) 0.6 X10'3 (0-0.9); MONOCYTES % (AUTO) 5.7 % (2-12); NEUTROPHILS # (AUTO) 6.5 X10'3 (1.8-7.7); NEUTROPHILS % (AUTO) 63.7 % (42-75); PLATELET COUNT 255 X10'3 (140-440); RED BLOOD COUNT 4.15 X10'6 (4.20-5.60); RED CELL DISTRIBUTION WIDTH 13.9 % (11.5-14.5); WHITE BLOOD COUNT 10.1 X10'3 (4.5-11.0)
[2021-11-13 05:05] LABS: URINE HCG NEGATIVE (NEG)
[2021-11-13 05:15] LABS: URINE AMPHETAMINE SCREEN NEGATIVE (Neg); URINE BARBITUATE SCREEN NEGATIVE (Neg); URINE BENZODIAZEPINES SCREEN NEGATIVE (Neg); URINE CANNABINOID SCREEN NEGATIVE (Neg); URINE COCAINE SCREEN NEGATIVE (Neg); URINE METHADONE SCREEN NEGATIVE (Neg); URINE OPIATE SCREEN NEGATIVE (Neg); URINE PHENCYCLIDINE SCREEN NEGATIVE (Neg)
[2021-11-13 05:16] LABS: ALANINE AMINOTRANSFERASE 28 U/L (12-78); ALBUMIN 3.4 G/DL (3.4-5.0); ALBUMIN/GLOBULIN RATIO 0.9 (1.1-1.5); ALKALINE PHOSPHATASE 94 IU/L (46-116); ANION GAP 16 (8-16); ASPARTATE AMINO TRANSFERASE 18 U/L (10-37); BILIRUBIN,TOTAL 0.3 MG/DL (0.1-1.0); BLOOD UREA NITROGEN 7 MG/DL (7-18); BUN/CREATININE RATIO 7.7 (6.6-38.0); CALCIUM 8.1 MG/DL (8.5-10.1); CHLORIDE 109 MMOL/L (99-107); CREATININE 0.91 MG/DL (0.40-0.90); ETHANOL 0.195 GM/DL (0.0-0.010); GLUCOSE 112 MG/DL (70-104); POTASSIUM 3.1 MMOL/L (3.5-5.1); SODIUM 148 MMOL/L (135-145); TOTAL CARBON DIOXIDE 22.8 MMOL/L (24-32); TOTAL PROTEIN 7.3 G/DL (6.4-8.2); eGFR 72 ML/MIN
--- NOTE | 2021-11-13 06:40 | NUR ---
PATIENT AMBULATORY FROM MAIN ER TO ER OVERFLOW AT APPROXIMATELY 0640 ACCOMPANIED BY PLANT MECHANIC. SHE IS A&O X4, CALM AND COOPERATIVE. PATIENT ENDORSED THAT SHE "HASNT HAD ANYTHING TO EAT IN A WHILE AND IS REALLY HUNGRY". PATIENT PROVIDED WITH SNACKS TO HER ROOM. SHE HAS NO COMPLAINTS OR S/S OF DISTRESS NOTED. PATIENT NOTED SITTING QUIETLY EATING IN HER ROOM AT THIS TIME. WILL CONTINUE TO MONITOR.
--- NOTE | 2021-11-13 08:30 | NUR ---
PATIENT AWOKE AND IS NOTED EATING BREAKFAST AT THIS TIME. SHE WAS RECEPTIVE TO 1:1 ASSESSMENT. PATIENT REPORTS FEELING "UNSAFE TO GO HOME", ENDORSING PASSIVE SI WITH NO PLAN. SHE DENIES HI, AH OR VH. PATIENT NOTED TO BE ANIMATED WHILE TALKING TO THIS WAFER PRODUCTION LEAD WORKER ABOUT HER DAUGHTER. SHE HAS NO COMPLAINTS OR S/S OF DISTRESS NOTED. WILL CONTINUE TO MONITOR.
--- NOTE | 2021-11-13 09:30 | NUR ---
PACKET FAXED TO [facility]
--- NOTE | 2021-11-13 10:35 | NUR ---
PATIENT IS BEING EVALUATED BY [facility] AT THIS TIME
--- NOTE | 2021-11-13 10:35 | NUR ---
PATIENT IS OBSERVED SITTING IN HER ROOM HAVING HAVING AN APPROPRIATE DISCUSSION WITH [facility] [employer] COUNSELOR AT THIS TIME. NO S/S OF DISTRESS OR CHANGES NOTED AT THIS TIME. SHE IS CALM AND COOPERATIVE.
--- NOTE | 2021-11-13 12:08 | NUR ---
PATIENT IS NOTED TO BE LYING IN BED TALKING ON THE PHONE WITH HER MOTHER. PATIENT APPEARS TO BE IRRITATED YET COOPERATIVE AND REDIRECTABLE. NO S/S OF DISTRESS. SHE WAS PROVIDED WITH HER LUNCH TRAY TO HER ROOM. NO COMPLAINTS OR CHANGES AT THIS TIME.
[2021-11-13] MEDS ORDERED: LURA40TA2 PO (13:09)
[2021-11-13] MEDS ORDERED: levetiracetam 250mg tablet PO ONE (14:20)
[2021-11-13] MEDS ORDERED: LORazepam 1 MG tablet PO ONE (14:20)
--- NOTE | 2021-11-13 14:30 | NUR ---
PATIENT IS OBSERVED SLEEPING IN HER ROOM AT THIS TIME. RISE AND FALL OF CHEST NOTED. NO S/S OF DISTRESS. WILL CONTINUE TO MONITOR.
[2021-11-13] MEDS ORDERED: OXCA300T16 PO (14:41)
[2021-11-13] MEDS: LORazepam 1 MG tablet PO PRN (14:49)
--- NOTE | 2021-11-13 16:22 | NUR ---
PATIENT IS OBSERVED SITTING QUIETLY IN HER ROOM COLORING A PICTURE AT THIS TIME. SHE WAS NOTED TALKING ON THE PHONE FOR A BRIEF PERIOD OF TIME WITH HER MOTHER. PATIENT IS CALM WITH NO S/S OF DISTRESS OR COMPLAINTS AT THIS TIME. WILL CONTINUE TO MONITOR.
[2021-11-13] MEDS ORDERED: nicotine 7mg patch - 24hr TD SCH (16:35)
--- NOTE | 2021-11-13 17:48 | NUR ---
PATIENT IS OBSERVED SLEEPING IN HER ROOM AT THIS TIME. RESPIRATIONS EVEN, UNLABORED. WILL CONTINUE TO MONITOR.
[2021-11-13] MEDS: lurasidone 20mg tablet PO SCH (18:10)
--- NOTE | 2021-11-13 18:14 | NUR ---
PATIENTS MOTHER IS VISITING AT BEDSIDE AT THIS TIME
--- NOTE | 2021-11-13 18:51 | NUR ---
One to one with the patient to assess severity of depressive symptoms and self harm risk. The patient has been resting quietly on her bed after eating dinner and visiting with her mother. She is alert and oriented. She reports feeling fatigued and that she has not been sleeping well at night. She alos reports high anxiety which she describes as chronic "for years" She continues to feel suicidal and stated that she wishes her suicide attempt would have been successful last night. She stated that she doesn't feel she has anything worth living for in her life. She is aware that she is on a 5150 hold.
[2021-11-13] MEDS: levetiracetam 250mg tablet PO SCH (19:29)
[2021-11-13] MEDS: traZODone 50mg tablet PO SCH (19:29)
--- NOTE | 2021-11-13 19:59 | NUR ---
Seizure pads applied to the bed
--- NOTE | 2021-11-13 21:53 | NUR ---
The patient appears to be sleeping
--- NOTE | 2021-11-13 23:01 | NUR ---
The patient appears to be sleeping
--- NOTE | 2021-11-14 00:36 | NUR ---
The patient appears to be sleeping
--- NOTE | 2021-11-14 02:52 | NUR ---
The patient appears to be sleeping
--- NOTE | 2021-11-14 04:04 | NUR ---
The patient appears to be sleeping
[2021-11-14] MEDS ORDERED: potassium Cl 20 mEq SR tablet PO STA (05:04)
[2021-11-14] MEDS ORDERED: benzocaine/menthol oral lozeng 1 EACH BOX MM PRN (05:05)
--- NOTE | 2021-11-14 05:06 | NUR ---
The patient is reporting a very sore throat. Dr. Stone made aware and orders received.
[2021-11-14] MEDS ORDERED: HALLS - SOOTHE MENTHOL 1.8 MG cough drop LOZENGE MM PRN (05:15)
--- NOTE | 2021-11-14 06:01 | NUR ---
Up to bathroom. No distress.
[2021-11-14] MEDS ORDERED: oxcarbazepine 150mg tablet PO SCH (08:00)
[2021-11-14] MEDS: levetiracetam 250mg tablet PO SCH ×2 (08:03→20:28)
--- NOTE | 2021-11-14 08:18 | NUR ---
Pt co burning on urination. Notified dr. Hills, ua obtained and sent to lab.
[2021-11-14 08:34] LABS: CLARITY,URINE TURBID (Clear); COLOR,URINE YELLOW (Yellow); GLUCOSE, URINE NEGATIVE (Neg); KETONES,URINE NEGATIVE (Neg); LEUKOCYTE ESTERASE ,URINE LARGE (Neg); NITRITES, URINE POSITIVE (Neg); OCCULT BLOOD,URINE TRACE-INTACT (Neg); PROTEIN,URINE 30 mg/dl (Neg); UROBILINOGEN,URINE 0.2 E.U/dL (0.2-1.0)
[2021-11-14 08:35] LABS: UA COLLECTION TYPE VOIDED
[2021-11-14 08:40] LABS: BACTERIA,URINE 3+ /HPF (Neg); WBC,URINE TNTC /HPF (0-4)
[2021-11-14 08:41] LABS: RBC,URINE 0-2 /HPF (0-2); SQUAMOUS EPITHELIAL CELL,UR FEW /LPF (FEW)
[2021-11-14] MEDS ORDERED: CefTRIAXone 500MG IM Kit w/LIDOcaine IM ONE (09:05)
[2021-11-14] MEDS ORDERED: nitrofuran monohydrate/nitrofuran macrocrysal 100 MG (MacroBID) capsule PO STA (09:05)
--- NOTE | 2021-11-14 10:18 | NUR ---
PT HAS UTI. MEDICATED IM WITH ROCEPHIN AND PO WITH MACRODANTIN. TOLERATED IM WELL. TOLERATING AND ENCOURAGED TO DRINK H20.
--- NOTE | 2021-11-14 11:53 | NUR ---
doing very well. spoke with her grandmother on the phone. no distress at this time.
[2021-11-14] MEDS ORDERED: phenazopyridine 100mg tablet PO STA (12:26)
[2021-11-14] MEDS ORDERED: ibuprofen tablet 400 MG TABLET PO ONE (12:30)
--- NOTE | 2021-11-14 12:36 | NUR ---
C/O bladder spasms after voiding. Pain a 5. "It feels like I'm peeing rocks." Med with ibuprofen and pyridium after speaking with Dr. Hills.
--- NOTE | 2021-11-14 14:14 | NUR ---
Doing very well. Read a book some now is resting. No c/o pain. No distress.
--- NOTE | 2021-11-14 15:00 | NUR ---
Pt transported by wheelchair to [facility] afterreport given to Rudolph. All questions answered.
[2021-11-14] MEDS ORDERED: NICOTINE POLACRILEX 2 MG LOZENGE BC PRN (15:20)
[2021-11-14] MEDS ORDERED: magnesium hydroxide 30ml (MOM) UD suspension PO PRN (15:20)
[2021-11-14] MEDS ORDERED: loperamide 2mg capsule PO PRN (15:20)
[2021-11-14] MEDS ORDERED: mag hydrox/Alum hydrox/simeth 30ml oral suspension PO PRN (15:20)
[2021-11-14] MEDS ORDERED: acetaminophen 325mg tablet PO PRN ×2 (15:20)
[2021-11-14 15:27] VITALS: BP 113/79
[2021-11-14] MEDS ORDERED: ibuprofen 200mg tablet PO SCH (16:00)
[2021-11-14] MEDS: phenazopyridine 100mg tablet PO PRN (17:07)
--- NOTE | 2021-11-14 17:11 | NUR ---
Admit note: Pt admitted today from the emergency room on a 5150 for DTS at 1500. Pt reports suicidal thoughts with a plan to jump in front of traffic. Pt is unable to safety plan. Pt has history of suicide attempts and bipolar.
[2021-11-14] MEDS ORDERED: ibuprofen 200mg tablet PO PRN (17:15)
[2021-11-14] MEDS: lurasidone 20mg tablet PO SCH (18:07)
[2021-11-14 19:21] VITALS: BP 123/75
[2021-11-14] MEDS: oxcarbazepine 150mg tablet PO SCH (20:27)
[2021-11-14] MEDS: traZODone 50mg tablet PO SCH (20:28)
--- NOTE | 2021-11-15 04:26 | NUR ---
Nursing Progress Note: Agnes Problem: Pt admitted today from the emergency room on a 5150 for DTS at 1500. Pt reports suicidal thoughts with a plan to jump in front of traffic. Pt is unable to safety plan. Pt has history of suicide attempts and bipolar. Intervention: Medication given as ordered with no adverse side effects noted. Provided with a safe and therapeutic environment, clear communication, active listening and positive encouragement. Response: Patient was found sitting in rec room watching tv and socializing with other patients. Patient stated that she prefers to be called Agnes and went to take a nap. Patient woke up requesting night medications. Patient took all medications without issue. Nurse ask patient how she was feeling. Patient stated she is still thinking about harming herself but doesnt plan on doing it here. After taking medications patient returned to bed. Plan: Patient continues to require crisis interruption and stabilization with medication management and monitoring in a safe and therapeutic environment.
[2021-11-15] MEDS: oxcarbazepine 150mg tablet PO SCH ×2 (07:17→20:19)
[2021-11-15] MEDS: LORazepam 1 MG tablet PO PRN (07:17)
[2021-11-15] MEDS: levetiracetam 250mg tablet PO SCH ×2 (07:18→20:19)
[2021-11-15] MEDS: nicotine 21mg patch - 24 hr TD SCH (07:18)
[2021-11-15 08:07] VITALS: BP 121/75
[2021-11-15] MEDS: phenazopyridine 100mg tablet PO PRN (08:21)
[2021-11-15 08:45] LABS: CHOL/HDL RATIO 2.2 (0.00-4.99); CHOLESTEROL 180 MG/DL (0-200); HDL CHOLESTEROL 81 MG/DL (35-60); LDL CHOLESTEROL 70 MG/DL (50-100); TRIGLYCERIDES 84 MG/DL (20-135)
[2021-11-15 08:57] LABS: HEMOGLOBIN A1C 5.2 % (4.5-6.2)
--- NOTE | 2021-11-15 10:31 | NUR ---
Patient lying on left side, appears to be sleeping comfortably with eyes closed and respirations even and unlabored. Prior to breakfast, patient approached this RN and stated that she was "feeling anxious." When asked to elaborate on her feelings patient stated, "I don't know. I woke feeling anxious and also sad." Patient pleasant and made eye contact during conversation. She denied any AH/VH. Patient was given ativan at that time as ordered for anxiety. Patient was up in dining room for breakfast and returned back to room. Patient also stated that she normally takes 2 tabs of trazodone at HS at home but has been only getting 1 tab here which has been effecting her sleep pattern. Patient requested when her "psych Dr and not the medical Dr comes in I'd like to ask to get 2." Let patient know this RN will relay request to Dr. Will continue to monitor.
[2021-11-15] MEDS ORDERED: potassium Cl 20 mEq SR tablet PO STA (13:38)
--- NOTE | 2021-11-15 14:09 | NUR ---
Nursing Progress Note: "Agnes" Problem: Pt admitted 11/14/21 from the emergency room on a 5150 for DTS. Pt reports suicidal thoughts with a plan to jump in front of traffic. Pt is unable to safety plan. Pt has history of suicide attempts and bipolar. Intervention: Medication given as ordered with no adverse side effects noted. Provided with a safe and therapeutic environment, clear communication, active listening and positive encouragement. Response: Received patient appearing to be sleeping comfortably in bed. Patient then up and ambulating hallway prior to breakfast. Patient approached this RN this morning stating she was feeling anxious and unable to elaborate more on why she was feeling anxious. Patient stated, I dont know. I woke up feeling anxious and sad. Patient denies any A/V hallucinations and denies SI/HI. Patient was administered Ativan PRN as ordered. Patient in dining room for all meals and napped a while after breakfast. Patient states that she normally takes x2 Trazadone tablets at night but has been only receiving 1 tablet here therefore woke up at 4am and feels the need to nap too early in the day. Upon looking up patient EMAR patient is receiving 2 tab of Trazadone. Patient up and ambulating hallway smiling and pleasant. She was able to speak to her mother on the telephone and had made a list of safe things mother can bring in for her. Patient c/o of burning after voiding. Pyridium PRN was given as ordered and effective. Patient has been in rec room watching tv with no issues. No behaviors observed. Plan: Patient continues to require crisis interruption and stabilization with medication management and monitoring in a safe and therapeutic environment.
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
[2021-11-15] MEDS: lurasidone 20mg tablet PO SCH (17:09)
[2021-11-15 19:39] VITALS: BP 108/66
[2021-11-15] MEDS: traZODone 50mg tablet PO SCH (20:20)
[2021-11-15] MEDS: ciprofloxacin 250mg tablet PO SCH (20:21)
[2021-11-15] MEDS: thiamine 100mg tablet PO SCH (20:22)
--- NOTE | 2021-11-16 05:13 | NUR ---
Nursing Progress Note: Agnes Problem: Pt admitted today from the emergency room on a 5150 for DTS at 1500. Pt reports suicidal thoughts with a plan to jump in front of traffic. Pt is unable to safety plan. Pt has history of suicide attempts and bipolar. Intervention: Medication given as ordered with no adverse side effects noted. Provided with a safe and therapeutic environment, clear communication, active listening and positive encouragement. Response: Patient was found sleeping in bed at beginning of shift. Patient continued to sleep until nurse came in with night medications. Nurse asked if patient wanted to get up and participate in snack and patient refused. Patient took all night medications without difficulty and returned to bed. Plan: Patient continues to require crisis interruption and stabilization with medication management and monitoring in a safe and therapeutic environment.
[2021-11-16] MEDS: folic acid 1mg tablet PO SCH (07:39)
[2021-11-16] MEDS: ciprofloxacin 250mg tablet PO SCH ×2 (07:39→20:21)
[2021-11-16] MEDS: cyanocobalamin 500mcg tablet PO SCH (07:39)
[2021-11-16] MEDS: nicotine 21mg patch - 24 hr TD SCH (07:39)
[2021-11-16] MEDS: oxcarbazepine 150mg tablet PO SCH ×2 (07:40→20:23)
[2021-11-16] MEDS: levetiracetam 250mg tablet PO SCH ×2 (07:40→20:21)
[2021-11-16] MEDS: multivitamins, therapeutics tablet PO SCH (07:40)
[2021-11-16] MEDS: thiamine 100mg tablet PO SCH ×2 (07:40→20:22)
[2021-11-16 07:49] LABS: ALANINE AMINOTRANSFERASE 28 U/L (12-78); ALBUMIN 3.5 G/DL (3.4-5.0); ALBUMIN/GLOBULIN RATIO 0.8 (1.1-1.5); ALKALINE PHOSPHATASE 84 IU/L (46-116); ANION GAP 12 (8-16); ASPARTATE AMINO TRANSFERASE 24 U/L (10-37); BILIRUBIN,TOTAL 0.4 MG/DL (0.1-1.0); BLOOD UREA NITROGEN 11 MG/DL (7-18); BUN/CREATININE RATIO 12.5 (6.6-38.0); CALCIUM 8.8 MG/DL (8.5-10.1); CHLORIDE 102 MMOL/L (99-107); CREATININE 0.88 MG/DL (0.40-0.90); GLUCOSE 105 MG/DL (70-104); POTASSIUM 4.7 MMOL/L (3.5-5.1); SODIUM 138 MMOL/L (135-145); TOTAL CARBON DIOXIDE 24.3 MMOL/L (24-32); TOTAL PROTEIN 7.9 G/DL (6.4-8.2); eGFR 75 ML/MIN
[2021-11-16 08:00] VITALS: BP 106/72
[2021-11-16] MEDS: naltrexone 50mg tablet PO SCH (08:55)
--- NOTE | 2021-11-16 14:54 | NUR ---
Nursing Progress Note: Problem: Pt admitted 11/14/21 from the emergency room on a 5150 for DTS. Pt reports suicidal thoughts with a plan to jump in front of traffic. Pt was unable to safety plan. Pt has history of suicide attempts and bipolar. Intervention: Medication given as ordered with no adverse side effects noted. Provided with a safe and therapeutic environment, clear communication, active listening and positive encouragement. Response: Received Pt in bed sleeping w/o distress. Pt woke and was cooperative with vitals and ate meals well today. Pt took AM meds w/o issue and discussed her seizures and triggers. Pt social with roommate and others, playing cards in AM and watching TV and talking in afternoon. Pt had several pleasant phone calls and was smiling and joking with staff and other Pts. denies SI at this time and spoke happily about engagement. Pt has been pleasant and cooperative in euthymic mood. Pt did not receive any PRN medication this shift, and enjoyed patio outing. Pt happy to get delivery hair products and coloring books. Patient continues to require crisis interruption and stabilization with medication management and monitoring in a safe and therapeutic environment.
[2021-11-16] MEDS: LORazepam 1 MG tablet PO PRN (18:37)
[2021-11-16 19:48] VITALS: BP 114/70
[2021-11-16] MEDS: mirtazapine 15mg tablet PO SCH (20:22)
[2021-11-16] MEDS: lurasidone 20mg tablet PO SCH (20:22)
[2021-11-16] MEDS: traZODone 50mg tablet PO SCH (20:23)
--- NOTE | 2021-11-17 00:52 | NUR ---
Nursing Progress Note: Problem: Pt admitted 11/14/21 from the emergency room on a 5150 for DTS. Pt reports suicidal thoughts with a plan to jump in front of traffic. Pt was unable to safety plan. Pt has history of suicide attempts and bipolar. Intervention: Medication given as ordered with no adverse side effects noted. Provided with a safe and therapeutic environment, clear communication, active listening and positive encouragement. Response: At the beginning of the shift Pt c/o intermittent painful cramping all over her body. Given PRN 1mg Ativan. Sat with pt to assess for 3o minutes. Pt talked about her plans to seek inpatient rehab at discharge. She denies current SI and is hopeful for her future. Pt has a long history of ETOH abuse. She believes alcohol triggers her mental health problems. She has a family history of substance abuse her mother was an alcoholic her father a meth addict. Pt had no further episodes of cramping. Took a shower, socialized with peers, took medications and went to sleep. Plan: Patient continues to require crisis interruption and stabilization with medication management and monitoring in a safe and therapeutic environment.
[2021-11-17 08:00] VITALS: BP 96/63
[2021-11-17] MEDS: multivitamins, therapeutics tablet PO SCH (08:20)
[2021-11-17] MEDS: cyanocobalamin 500mcg tablet PO SCH (08:20)
[2021-11-17] MEDS: oxcarbazepine 150mg tablet PO SCH ×2 (08:21→20:23)
[2021-11-17] MEDS: levetiracetam 250mg tablet PO SCH ×2 (08:21→20:22)
[2021-11-17] MEDS: ciprofloxacin 250mg tablet PO SCH ×2 (08:21→20:23)
[2021-11-17] MEDS: naltrexone 50mg tablet PO SCH (08:21)
[2021-11-17] MEDS: thiamine 100mg tablet PO SCH ×2 (08:21→20:23)
[2021-11-17] MEDS: folic acid 1mg tablet PO SCH (08:22)
[2021-11-17] MEDS: nicotine 21mg patch - 24 hr TD SCH (08:23)
[2021-11-17] MEDS ORDERED: cyclobenzaprine 10mg tablet PO PRN (13:50)
[2021-11-17] MEDS ORDERED: benztropine 1mg tablet PO ONE (14:00)
--- NOTE | 2021-11-17 17:42 | NUR ---
Nursing Progress Note: Carmina Problem: Pt admitted 11/14/21 from the emergency room on a 5150 for DTS. Pt reports suicidal thoughts with a plan to jump in front of traffic. Pt was unable to safety plan. Pt has history of suicide attempts and bipolar. Patient noted to be hopeful with no statements of SI noted on this shift. Intervention: Provided 1:1 assessment, established rapport, active listening and positive encouragement, medication administration, maintained a safe and supportive environment, ensured contract for safety, provided redirection as needed, and maintained Q 15 min safety checks. Response: Patient received sleeping in her room with no s/s of distress. She declined to participate for breakfast in the group room, endorsing that she wasnt hungry. She was receptive to scheduled medication and 1:1 assessment. Patient reported shooting pain in her legs and generalized muscle aches on this shift. Patient given PRN Motrin with partial effectiveness. COLLIN Aiken notified with one time order for Cogentin 1mg PO. Patient provided with Cogentin per order with effectiveness. Patient denied both leg pain and muscle aches approximately one hour after receiving Cogentin. Patient was noted sleeping the majority of this shift. She denies SI/HI, AH or VH. Does not appear to be responding to internal stimuli. Patient is noted to be pleasant and cooperative with a euthymic mood. She participated for lunch in the group room with peers. Patient observed visiting with her mother for a short period of time during visiting hours. She was isolative to her room the majority of the day aside from snack and meal times. Patient noted to be more energetic and social toward the end of the shift, observed sitting in the group room with peers. Plan: Patient continues to require crisis interruption and stabilization with medication management and monitoring in a safe and therapeutic environment.
[2021-11-17 19:26] VITALS: BP 116/79
[2021-11-17] MEDS: lurasidone 20mg tablet PO SCH (20:22)
[2021-11-17] MEDS: gabapentin 100mg capsule PO SCH (20:24)
[2021-11-17] MEDS: benztropine 1mg tablet PO SCH (20:24)
[2021-11-17] MEDS: mirtazapine 15mg tablet PO SCH (20:24)
[2021-11-17] MEDS: traZODone 50mg tablet PO SCH (20:24)
--- NOTE | 2021-11-18 02:06 | NUR ---
Nursing Progress Note: Problem: Pt admitted 11/14/21 from the emergency room on a 5150 for DTS. Pt reports suicidal thoughts with a plan to jump in front of traffic. Pt was unable to safety plan. Pt has history of suicide attempts and bipolar. Patient noted to be hopeful with no statements of SI noted on this shift. Intervention: Provided 1:1 assessment, established rapport, active listening and positive encouragement, medication administration, maintained a safe and supportive environment, ensured contract for safety, provided redirection as needed, and maintained Q 15 min safety checks. Response: Pt up on unit interacting with peers. Pleasant and cooperative, denied any pain in legs. Took all medications. Pt reported that she slept a lot during the day but went to sleep without difficulty and is sleeping now. Plan: Patient continues to require crisis interruption and stabilization with medication management and monitoring in a safe and therapeutic environment.
[2021-11-18 08:00] VITALS: BP 97/60
--- NOTE | 2021-11-18 08:13 | NUR ---
Met with patient in regards to alcohol use and to see if patient wanted any resources for treatment options. Patient would like to go to an inpatient rehab. I gave patient [facility] number to call and get process started. Also patient was started on Naltrexone which is helping. I will follow up with patient and help assist her with getting into rehab.
[2021-11-18] MEDS: ciprofloxacin 250mg tablet PO SCH ×2 (08:15→20:29)
[2021-11-18] MEDS: folic acid 1mg tablet PO SCH (08:15)
[2021-11-18] MEDS: levetiracetam 250mg tablet PO SCH ×2 (08:15→20:30)
[2021-11-18] MEDS: naltrexone 50mg tablet PO SCH (08:15)
[2021-11-18] MEDS: benztropine 1mg tablet PO SCH ×2 (08:15→20:29)
[2021-11-18] MEDS: gabapentin 100mg capsule PO SCH ×3 (08:15→20:29)
[2021-11-18] MEDS: cyanocobalamin 500mcg tablet PO SCH (08:16)
[2021-11-18] MEDS: thiamine 100mg tablet PO SCH ×2 (08:16→20:29)
[2021-11-18] MEDS: oxcarbazepine 150mg tablet PO SCH ×2 (08:16→20:29)
[2021-11-18] MEDS: nicotine 21mg patch - 24 hr TD SCH (08:16)
[2021-11-18] MEDS: multivitamins, therapeutics tablet PO SCH (08:16)
--- NOTE | 2021-11-18 10:56 | NUR ---
Initial: Pt admitted w/ bipolar depression per EMR. Currently on Regular diet w/ mostly 100% intake of meals meeting needs at this time. M 11/16 w/ PRN bowel care available. No nutrition intervention implemented at this time, will continue to monitor. Recs; 1. Continue Regular diet as tolerated 2. Bowel care per rx 3. Weekly wts Addendum: 11/18/21 at [address] Amended: Links added.
--- NOTE | 2021-11-18 14:12 | NUR ---
Agnes reported she called [employer] and was connected to [facility] in [place] and they can do an intake on Thu. Called [facility] with Agnes and she spoke to Rg (ph#[phone]) who screened her on the phone. He reported she needs to be at [facility] by 1 PM on Thu. Agnes will call [facility] transportation to get it set up. Requested Agnes's medications get finalized and sent to [facility] for delivery tomorrow. KARLI Navarro
[2021-11-18] MEDS: LORazepam 1 MG tablet PO PRN (15:56)
--- NOTE | 2021-11-18 17:54 | NUR ---
Nursing Progress Note: Problem: Pt admitted 11/14/21 from the emergency room on a 5150 for DTS. Patients diagnosis included Bipolar, Depression and Alcohol Intake. Pt reports suicidal thoughts with a plan to jump in front of traffic. Pt was unable to safety plan. Pt has history of suicide attempts and is bipolar. Intervention: Medications taken without hesitation. Patient awake but refused breakfast, and stated Im not a morning eater. Patient has a great relationship with her roommate, and they are found frequently having laughing and conversing in their room. Patient was outside her room and playing games in the Community Room most of the afternoon. Response: Patient is pleasant and cooperative at all times. Patient informs this chart writer that she was able to call 6 places yesterday, and an alcohol rehabilitation facility in [place] has accepted her for treatment, and she will be discharged on Thursday. Patient informs she already spoke to Georgia about it today, and Georgia will send the facility pertinent information. Patient repeats no suicidal ideation, and she is feeling much better every day. Plan: Patient continues to require crisis interruption and stabilization with medication management and monitoring in a safe and therapeutic environment.
[2021-11-18] MEDS ORDERED: FOLI1TAB27 PO (18:23)
[2021-11-18] MEDS ORDERED: LURA40TA2 PO (18:23)
[2021-11-18] MEDS ORDERED: GABA-530 PO (18:23)
[2021-11-18] MEDS ORDERED: CYAN500T71 PO (18:23)
[2021-11-18] MEDS ORDERED: CIPR-202 PO (18:23)
[2021-11-18] MEDS ORDERED: OXCA300T16 PO (18:23)
[2021-11-18] MEDS ORDERED: MIRT-87 PO (18:23)
[2021-11-18] MEDS ORDERED: LORA-269 PO (18:23)
[2021-11-18] MEDS ORDERED: NICO-687 TD (18:23)
[2021-11-18] MEDS ORDERED: LEVE500T PO (18:23)
[2021-11-18] MEDS ORDERED: STORE MEDs IN PHARMACY MC (18:23)
[2021-11-18] MEDS ORDERED: thiamine tablet PO (18:23)
[2021-11-18] MEDS ORDERED: MULT-25 PO (18:23)
[2021-11-18] MEDS ORDERED: TRAZ-256 PO (18:23)
[2021-11-18] MEDS ORDERED: NALT50TA PO (18:23)
[2021-11-18] MEDS ORDERED: BENZ1TAB90 PO (18:23)
[2021-11-18 19:30] VITALS: BP 118/85
[2021-11-18] MEDS: traZODone 50mg tablet PO SCH (20:29)
[2021-11-18] MEDS: lurasidone 20mg tablet PO SCH (20:29)
[2021-11-18] MEDS: mirtazapine 15mg tablet PO SCH (20:29)
--- NOTE | 2021-11-18 21:09 | NUR ---
Nicotine patch removed
--- NOTE | 2021-11-18 21:47 | NUR ---
Nursing Progress Note: Problem: Pt admitted 11/14/21 from the emergency room on a 5150 for DTS. Pt reports suicidal thoughts with a plan to jump in front of traffic. Pt was unable to safety plan. Pt has history of suicide attempts and bipolar. Patient noted to be hopeful with no statements of SI noted on this shift. Intervention: Provided 1:1 assessment, established rapport, active listening and positive encouragement, medication administration, maintained a safe and supportive environment, ensured contract for safety, provided redirection as needed, and maintained Q 15 min safety checks. Response: Pt was in bed sleeping at change of shift. She woke for HS meds, she states today was a good day and shes excited about getting accepted at a rehab. Pt is pleasant and coopeartive. Pt had a snack and took HS meds. Spent time socializing w/roommate and talking w/her grandmother before going to bed. Plan: Patient continues to require crisis interruption and stabilization with medication management and monitoring in a safe and therapeutic environment.
[2021-11-19 08:00] VITALS: BP 86/58
[2021-11-19] MEDS: nicotine 21mg patch - 24 hr TD SCH (08:15)
[2021-11-19] MEDS: folic acid 1mg tablet PO SCH (08:16)
[2021-11-19] MEDS: thiamine 100mg tablet PO SCH ×2 (08:16→20:24)
[2021-11-19] MEDS: multivitamins, therapeutics tablet PO SCH (08:16)
[2021-11-19] MEDS: naltrexone 50mg tablet PO SCH (08:16)
[2021-11-19] MEDS: cyanocobalamin 500mcg tablet PO SCH (08:16)
[2021-11-19] MEDS: benztropine 1mg tablet PO SCH ×2 (08:16→20:24)
[2021-11-19] MEDS: levetiracetam 250mg tablet PO SCH ×2 (08:16→20:26)
[2021-11-19] MEDS: gabapentin 100mg capsule PO SCH ×3 (08:16→20:24)
[2021-11-19] MEDS: oxcarbazepine 150mg tablet PO SCH ×2 (08:16→20:25)
[2021-11-19] MEDS: ciprofloxacin 250mg tablet PO SCH ×2 (08:17→20:24)
--- NOTE | 2021-11-19 13:07 | NUR ---
DISCHARGE PLAN Agnes is getting picked up at 8:30 AM by [facility]. She is going to [facility] in [place]. Her medications were delivered by [facility] and need to go with her. KARLI Navarro
[2021-11-19] MEDS: LORazepam 1 MG tablet PO PRN (15:11)
--- NOTE | 2021-11-19 17:41 | NUR ---
Nursing Progress Note: Problem: Pt admitted 11/14/21 from the emergency room on a 5150 for DTS. Patients diagnosis included Bipolar, Depression and Alcohol Intake. Pt reports suicidal thoughts with a plan to jump in front of traffic. Pt was unable to safety plan. Pt has history of suicide attempts and is bipolar. Intervention: Patient reported yesterday I am not a morning person, and refused to get out of bed to eat at 0745. Patients roommate woke her up and she was out of bed at 0640. Patient was located dressed and smiling in the Community Room before 7:00 am. After breakfast patient played SERGIO with many of her peers. Patient took medications without hesitation. Patient found out that her roommate would be leaving today, and became very tearful and c/o anxiety. Patient given Ativan at 1511. Response: When patient was up early and came to me at approximately 0930, I informed her that she had graduated to now be a Morning Person. Patient laughed and said Thats great because I need to be up and out of bed for rehab classes starting morning. Patient reported good relief after taking the Ativan. Patient denies any hallucinations. Patient went out to the patio at 0915, and enjoyed the sunshine and fresh air. Patient will discharge tomorrow. Plan: Patient continues to require crisis interruption and stabilization with medication management and monitoring in a safe and therapeutic environment. Patient to discharge tomorrow to an [facility] Unit in [place]. Dietary needs to be called so that a sack lunch is ordered prior to her departure tomorrow. Discharge medications have been ordered through [facility], and delivered and placed in the [facility].
[2021-11-19 19:37] VITALS: BP 118/70
[2021-11-19] MEDS: mirtazapine 15mg tablet PO SCH (20:24)
[2021-11-19] MEDS: traZODone 50mg tablet PO SCH (20:25)
[2021-11-19] MEDS: lurasidone 20mg tablet PO SCH (20:25)
--- NOTE | 2021-11-19 22:09 | NUR ---
Nursing Progress Note: Problem: Pt admitted 11/14/21 from the emergency room on a 5150 for DTS. Pt reports suicidal thoughts with a plan to jump in front of traffic. Pt was unable to safety plan. Pt has history of suicide attempts and bipolar. Patient noted to be hopeful with no statements of SI noted on this shift. Intervention: Provided 1:1 assessment, established rapport, active listening and positive encouragement, medication administration, maintained a safe and supportive environment, ensured contract for safety, provided redirection as needed, and maintained Q 15 min safety checks. Response: Pt was in her room at change of shift meeting with provider. Pt is requesting a shower tonight and was able to shower and shave her legs. Pt denies s/i, states she is happy to be going to rehab straight from here because in the past she left a facility and didnt end up making it to rehab. Pt is hopeful she will be able to do well in rehab because she states he current medications are working well for her. Pt took HS meds and had a snack before going to bed. Plan: Patient continues to require crisis interruption and stabilization with medication management and monitoring in a safe and therapeutic environment.
[2021-11-20 07:14] VITALS: BP 99/56
[2021-11-20] MEDS: nicotine 21mg patch - 24 hr TD SCH (08:18)
[2021-11-20] MEDS: oxcarbazepine 150mg tablet PO SCH (08:19)
[2021-11-20] MEDS: folic acid 1mg tablet PO SCH (08:19)
[2021-11-20] MEDS: levetiracetam 250mg tablet PO SCH (08:19)
[2021-11-20] MEDS: gabapentin 100mg capsule PO SCH (08:19)
[2021-11-20] MEDS: cyanocobalamin 500mcg tablet PO SCH (08:19)
[2021-11-20] MEDS: ciprofloxacin 250mg tablet PO SCH (08:20)
[2021-11-20] MEDS: thiamine 100mg tablet PO SCH (08:20)
[2021-11-20] MEDS: LORazepam 1 MG tablet PO PRN (08:21)
[2021-11-20] MEDS: multivitamins, therapeutics tablet PO SCH (08:21)
[2021-11-20] MEDS: naltrexone 50mg tablet PO SCH (08:23)
[2021-11-20] MEDS: benztropine 1mg tablet PO SCH (08:23)
--- NOTE | 2021-11-20 08:28 | NUR ---
PT DISCHARGED TO [facility] IN [place], [place]. PT BELONGINGS INVENTORIED BY STAFF ON THE MACHINE STITCHER AND ALL PAPERS SIGNED WITH NIGHT STAFF REGARDING DISCHARGE AND BELONGINGS. PT LEFT WITH A SMILE; APPEARED AND VERBALLY ACKNOWLEDGED ANXIETY ATIVAN PRN GIVEN PRIOR TO DISCHARGE. PT STATED FEELINGS OF ANXIETY DUE TO "I HAVE NEVER STAYED AT A REHAB THE LAST ONE I WAS AT I BACKED OUT OF AND I DON'T WANT TO DO THAT AGAIN." PT HUGGED PEOPLE AND LEFT ON A POSITIVE NOTE.
== END 2021-11-20 08:34 | DRG 885 ==
LOC: ER 04:43 → ED HOLD 11-14 10:55 → ADULT MH 11-14 15:14
PROVIDERS: ADMIT Psychiatry & Neurology Psychiatry; ATTEND Psychiatry & Neurology Psychiatry
DX: F31.9 Bipolar disorder, unspecified (principal); R45.851 Suicidal ideations; N39.0 Urinary tract infection, site not specified; Z20.822 Contact with and (suspected) exposure to COVID-19; G40.909 Epilepsy, unspecified, not intractable, without status epilepticus; J45.909 Unspecified asthma, uncomplicated; Z62.810 Personal history of physical and sexual abuse in childhood; Z62.811 Personal history of psychological abuse in childhood; K21.9 Gastro-esophageal reflux disease without esophagitis; E87.6 Hypokalemia; F10.10 Alcohol abuse, uncomplicated; Y90.9 Presence of alcohol in blood, level not specified; F17.210 Nicotine dependence, cigarettes, uncomplicated; Z90.49 Acquired absence of other specified parts of digestive tract; Z91.410 Personal history of adult physical and sexual abuse; Z88.8 Allergy status to other drugs, medicaments and biological substances
CPT/HCPCS: 36415; 80053; 80061; 80183; 80305; 80320; 81001; 81025; 83036; 85025; 87081; 87635; 99285; C9803; J0696

== ENCOUNTER 2021-11-26 23:10 | Emergency (ER) | payer MEDICARE, MEDICAID ==
[~2021-11-26] VITALS: Ht 154.9 cm; Wt 77.3 kg
[~2021-11-26 23:10] MED LIST changes: +BENZ1TAB90 PO; -CEPH-585 PO; +CIPR-202 PO; +CYAN500T71 PO; +FOLI1TAB27 PO; +GABA-530 PO; -KEP500T PO; +LEVE500T PO; +LORA-269 PO; +LURA40TA2 PO; +MIRT-87 PO; +MULT-25 PO; +NALT50TA PO; +NICO-687 TD; -ONDA4TAB6 PO; +OXCA300T16 PO; -OXCA600T37 PO; +STORE MEDs IN PHARMACY MC; +TRAZ-256 PO; +thiamine tablet PO
[2021-11-26 23:27] VITALS: BP 104/76
== END 2021-11-27 04:16 | disposition left against medical advice (07) ==
LOC: ER 23:10
DX: M25.572 Pain in left ankle and joints of left foot (principal); Z53.21 Procedure and treatment not carried out due to patient leaving prior to being seen by health care provider
CPT/HCPCS: 73610